=== PATIENT | male | born 1960 | race Caucasian/White ===

== ENCOUNTER 2018-05-27 07:21 | Day surgery (SDC) | payer OTHER ==
[2018-05-27 07:59] VITALS: BMI 35.0
--- NOTE | 2018-05-27 09:24 | PROC ---
Endoscopy Procedure Endoscopy procedure completed. Please see scanned procedure report.
[2018-05-27 09:35] VITALS: TEMP 98.6
[2018-05-27 12:04] VITALS: BP 153/90; PULSE 56
--- NOTE | 2018-05-28 13:14 | PATH ---
Surgical Pathology Report Patient Name: GIOVANI GUTIERREZ [facility]. Rec. #: [id number] /Age/Gender: 1960 (Age: 57) / M Account: [id number] Location: [facility]-ENDOSCOPY Taken: 05/27/2018 Received: 05/27/2018 Reported: 05/28/2018 Physicians: Nabeel Stovall M.D. Specimen(s) Received A: BX 2ND PORTION DUODENUM B: BX ANTRUM AND BODY C: BX GE JUNCTION Clinical History GERD, epigastric pain Postoperative diagnosis: Gastritis, esophagitis Final Diagnosis A. DUODENUM, SECOND PORTION, BIOPSY: SMALL BOWEL MUCOSA WITHOUT SIGNIFICANT PATHOLOGIC FINDINGS. B. STOMACH, ANTRUM AND BODY, BIOPSY: GASTRIC ANTRAL AND BODY MUCOSA WITH MILD CHRONIC GASTRITIS. IMMUNOHISTOCHEMICAL STAIN FOR H. PYLORI IS NEGATIVE. C. GASTROESOPHAGEAL (GE) JUNCTION, BIOPSY SQUAMOCOLUMNAR MUCOSA WITH MODERATE ACUTE AND CHRONIC INFLAMMATION AND CHANGES OF MODERATE REFLUX ESOPHAGITIS. NO INTESTINAL METAPLASIA OR DYSPLASIA IDENTIFIED. Electronically Signed Payton Li M.D. Gross Description A. Received in formalin, labeled "biopsy second portion of duodenum" are 3 lew, irregular portions of soft tissue ranging from 0.2-0.3 cm. in greatest dimension. The specimens are submitted in toto in one cassette. B. Received in formalin, labeled "antrum and body" are 2 lew, irregular portions of soft tissue measuring 0.2 and 0.5 cm. in greatest dimension. The specimens are submitted in toto in one cassette. C. Received in formalin, labeled "biopsy GE junction" are 3 lew, irregular portions of soft tissue ranging from 0.1-0.5 cm. in greatest dimension. The specimens are submitted in toto in one cassette. DL/05/27/2018 saudi/05/27/2018
== END 2018-05-27 11:30 | disposition home or self-care (01) ==
LOC: JASU-ENDO 07:21
PROVIDERS: ATTEND Internal Medicine Gastroenterology
PROC: 0DB68ZX Excision of Stomach, Via Natural or Artificial Opening Endoscopic, Diagnostic (ICD-10-PCS; 2018-05-27)
PROC: 0DB48ZX Excision of Esophagogastric Junction, Via Natural or Artificial Opening Endoscopic, Diagnostic (ICD-10-PCS; 2018-05-27)
PROC: 0DB98ZX Excision of Duodenum, Via Natural or Artificial Opening Endoscopic, Diagnostic (ICD-10-PCS; principal; 2018-05-27 09:00)
DX: K29.50 Unspecified chronic gastritis without bleeding (principal); K21.0 Gastro-esophageal reflux disease with esophagitis; R10.13 Epigastric pain
CPT/HCPCS: 88305-TC; 88342-TC

== ENCOUNTER 2019-06-13 13:14 | Emergency (ER) | payer OTHER ==
[2019-06-13 13:23] VITALS: BP 157/72; PULSE 69; TEMP 98; BMI 36.3
--- NOTE | 2019-06-13 15:12 | PDOC ---
History of Present Illness - General Chief Complaint: Pain, Acute Stated Complaint: right arm pain Time Seen by Provider: 06/13/19 14:56 History Source: Patient Exam Limitations: No Limitations - History of Present Illness Initial Comments: 06/13/19 15:06 HISTORY OF PRESENT ILLNESS: This is a 58-year-old man past medical history of NIDDM and hypercholesterolemia who presents emergency department for evaluation of atraumatic right elbow pain. Patient reports she was eating his lunch yesterday afternoon when he had a sudden onset pain in his left elbow shooting down the lateral aspect of his right forearm. Patient denies any trauma. Patient reports pain worsens with flexion and extension of his elbow. He denies any fevers or chills. No recent travel or sick contacts. PAST MEDICAL HISTORY: see HPI SURGICAL HISTORY: Denies ALLERGIES: No known drug allergies REVIEW OF SYSTEMS General/Constitutional: Denies fever or chills. Denies weakness, weight change. HEENT: Denies change in vision. Denies ear pain or discharge. Denies sore throat. Cardiovascular: Denies chest pain or shortness of breath. Respiratory: Denies cough, wheezing, or hemoptysis. Gastrointestinal: Denies nausea, vomiting, diarrhea or constipation. Denies rectal bleeding. Genitourinary: Denies dysuria, frequency, or change in urination. Musculoskeletal: see HPI Skin and breasts: Denies rash or easy bruising. Neurologic: Denies headache, vertigo, loss of consciousness, or loss of sensation. Psychiatric: Denies depression or anxiety. Endocrine: Denies increased thirst. Denies abnormal weight change. Hematologic/Lymphatic: Denies anemia, easy bleeding, or history of blood clots. Allergic/Immunologic: Denies hives or skin allergy. Denies latex allergy. PHYSICAL EXAM General Appearance: Well-appearing, appropriately dressed. No apparent distress , no intoxication. Respiratory/Chest: Lungs CTAB. No shortness of breath, chest tenderness, respiratory distress, accessory muscle use. No crackles, rales, rhonchi, stridor , wheezing, dullness Cardiovascular: RRR. S1, S2. No JVD, murmur, bradycardia, tachycardia. Vascular Pulses: Radial (R): 2+, Radial (L): 2+ Musculoskeletal/Extremities: Normal inspection. Normal capillary refill. Pelvis Stable. No CVA tenderness. Able to pronate and supinate right wrist without difficulty. No bony tenderness upon palpation of the humerus, radius or ulna. Tender over the brachial radialis of the right forearm. Neurovascularly intact. No erythema or warmth present. 06/13/19 15:06 06/13/19 15:50 Past History - Past Medical History Allergies/Adverse Reactions: Allergies Allergy/AdvReac Type Severity Reaction Status Date / Time No Known Allergies Allergy Verified 05/27/18 07:36 Home Medications: Ambulatory Orders Aspirin [Aspirin EC] 81 mg PO DAILY 05/27/18 Glipizide 5 mg PO DAILY 05/27/18 Omeprazole 40 mg PO DAILY 05/27/18 Anemia: No Asthma: No Cancer: No Cardiac Disorders: No CVA: No COPD: No CHF: No Dementia: No Diabetes: Yes GI Disorders: No Disorders: No HTN: No Hypercholesterolemia: Yes Liver Disease: No Seizures: No Thyroid Disease: No - Surgical History Orthopedic Surgery: Yes (LEFT KNE ARTHROSCOPY) - Immunization History Immunization Up to Date: No - Suicide/Smoking/Psychosocial Hx Smoking History: Unknown if ever smoked Have you smoked in the past 12 months: No Information on smoking cessation initiated: No Hx Alcohol Use: Yes (SOCIAL) Drug/Substance Use Hx: No Substance Use Type: None Hx Substance Use Treatment: No *Physical Exam - Vital Signs Last Vital Signs Temp Pulse Resp BP Pulse Ox 98.0 F 69 16 157/72 100 06/13/19 13:21 06/13/19 13:21 06/13/19 13:21 06/13/19 13:21 06/13/19 13:21 ED Treatment Course - RADIOLOGY Radiology Studies Ordered: Category Date Time Status ELBOW-RIGHT [RAD] Stat Radiology 06/13/19 15:04 Ordered Medical Decision Making - Medical Decision Making 06/13/19 15:10 A/P: 58-year-old male with atraumatic pain to his right elbow for 1 day No bony deformity, crepitus or step off is present to the humerus, radius or ulna of the right arm Tender to palpation over the brachial radialis muscle of the right forearm X-rays of the right elbow Patient is refusing pain medication at this time Reassess 06/13/19 15:47 X-rays as read by me: No acute fractures or dislocations are present. No sail sign present. Sling Discharge home to follow-up with orthopedist I discussed the physical exam findings, ancillary test results and final diagnoses with the patient. I answered all of the patient's questions. The patient was satisfied with the care received and felt comfortable with the discharge plan and treatment plan. The patient will call their primary care physician within 24 hours to arrange follow-up and will return to the Emergency Department with any new, persistent or worsening symptoms. Portions of this note have been documented using voice recognition software. As a result, errors may occur in the dynamics ax consultant process. Effort has been made to correct all grammatical and dynamics ax consultant error, but some may have been missed. *DC/Admit/Observation/Transfer Diagnosis at time of Disposition: Right forearm pain - Discharge Dispostion Disposition: HOME Condition at time of disposition: Stable Decision to Admit order: No - Referrals Referrals: Ash Hansen MD [Primary Care Provider] - Darryl Tom MD [Staff Physician] - - Patient Instructions Additional Instructions: Take Tylenol or Motrin as needed for pain. Follow manufacturers instructions for appropriate dosage. Apply ice for 20 minutes and removed for at least 20 minutes before reapplying the ice. Keep sling on your arm as much as possible to help control pain. You've been given the number for an orthopedist. If symptoms do not resolve within the next 7 days call the orthopedist for further evaluation. Return to emergency department for discoloration of the fingers, numbness or tingling to the fingers, worsening pain, or any other concerns. Thank you very much for choosing us to provide your emergent healthcare needs. - Post Discharge Activity
== END 2019-06-13 15:56 | disposition home or self-care (01) ==
LOC: JERFT 13:14
DX: M79.631 Pain in right forearm (principal); E11.9 Type 2 diabetes mellitus without complications; E78.00 Pure hypercholesterolemia, unspecified
CPT/HCPCS: 73070-TC-RT-FY; 99281-25